=== PATIENT | male | born 1935 | race Caucasian/White ===

== ENCOUNTER 2021-08-26 08:54 | Outpatient (CLI) | payer MEDICARE | END 2021-08-26 08:55 | disposition home or self-care (01) | LOC: LABBT 08:54 | PROVIDERS: ATTEND Internal Medicine Cardiovascular Disease | DX: Z53.9 Procedure and treatment not carried out, unspecified reason (principal) | CPT/HCPCS: 80053; 85027; 85610; 86850; 86900; 86901; U0003; U0005 ==

== ENCOUNTER 2021-08-26 10:15 | Inpatient (IN) | payer MEDICARE ==
[2021-08-26 10:07] LABS: Hemoglobin 16.3 g/dL (13.5-17.5); Mean Corpuscular HGB CONC 33.5 g/dL (32.0-36.0); Mean Corpuscular Hemoglobin 32.1 pg (27.0-33.0); Mean Corpuscular Volume 95.9 fl (81.2-95.1); Platelet Count 197 10x3/uL (150-450); RBC Distribution Width 14.4 % (11.5-14.5); Red Blood Cell (RBC) Count 5.08 10x6/uL (4.32-5.72); White Blood Cell (WBC) Count 7.2 10x3/uL (3.5-10.5)
[2021-08-26 10:21] LABS: INR-International Normal Ratio 0.9; Prothrombin Time 10.5 sec (9.5-12.1)
[2021-08-26 10:32] LABS: ALT (SGPT) 11 U/L (8-55); AST (SGOT) 15 U/L (5-34); Albumin 3.8 g/dL (3.4-4.8); Alkaline Phosphatase 63 U/L (40-110); Anion Gap 12 mmol/L (10-20); BUN (Urea Nitrogen) 12 mg/dL (8.4-25.7); Bilirubin, Total 0.9 mg/dL (0.2-1.2); Calc. Creatinine Clearance 0 mL/min (70-130); Calcium 9.3 mg/dL (7.8-10.44); Carbon Dioxide 27 mmol/L (23-31); Chloride 104 mmol/L (98-107); Globulin 2.9 g/dL (2.4-3.5); Glucose 95 mg/dL (83-110); Protein, Total 6.7 g/dL (5.8-8.1); Sodium 139 mmol/L (136-145)
[2021-08-26 19:05] LABS: SARS-CoV-2 PCR by NAA Not Detected (NotDetected)
[2021-08-28 13:37] VITALS: BMI 24.5
[2021-08-29] MEDS ORDERED: Heparin 10,000 UNITS/ 10 ML VIAL ONE (09:37)
[2021-08-29] MEDS ORDERED: Clindamycin/D5W 900 mg/50 ml Premix Bag ONE (09:53)
[2021-08-29] MEDS ORDERED: CEFAZOLIN 1 GM VIAL ONE (09:53)
[2021-08-29] MEDS ORDERED: Protamine Sulfate 50 MG/5 ML VIAL ONE (11:37)
== END 2021-08-29 16:27 | disposition home or self-care (01) | DRG 229 ==
LOC: SURG A 08-29 07:13 → EDSTATUS 08-29 10:15
PROVIDERS: ADMIT Internal Medicine Cardiovascular Disease; ATTEND Internal Medicine Cardiovascular Disease
PROC: 02H73DZ Insertion of Intraluminal Device into Left Atrium, Percutaneous Approach (ICD-10-PCS; principal; 2021-08-29)
PROC: 02PA3DZ Removal of Intraluminal Device from Heart, Percutaneous Approach (ICD-10-PCS; 2021-08-29)
PROC: B24BZZ4 Ultrasonography of Heart with Aorta, Transesophageal (ICD-10-PCS; 2021-08-29)
PROC: 4A023N7 Measurement of Cardiac Sampling and Pressure, Left Heart, Percutaneous Approach (ICD-10-PCS; 2021-08-29)
PROC: B2151ZZ Fluoroscopy of Left Heart using Low Osmolar Contrast (ICD-10-PCS; 2021-08-29)
DX: I48.21 Permanent atrial fibrillation (principal); Z20.822 Contact with and (suspected) exposure to COVID-19; Z00.6 Encounter for examination for normal comparison and control in clinical research program; I25.10 Atherosclerotic heart disease of native coronary artery without angina pectoris; M19.90 Unspecified osteoarthritis, unspecified site; M10.9 Gout, unspecified; Z96.651 Presence of right artificial knee joint; F17.210 Nicotine dependence, cigarettes, uncomplicated; Z88.0 Allergy status to penicillin; Z79.01 Long term (current) use of anticoagulants; Z79.899 Other long term (current) drug therapy
CPT/HCPCS: 33340; 36430; 80053; 85027; 85347; 85610; 86850; 86900; 86901; 93312; C1759; J0690; J1644; J2720; J3490; U0003; U0005

== ENCOUNTER 2023-09-23 09:48 | Outpatient (CLI) | payer MEDICARE | END 2023-09-23 09:49 | disposition home or self-care (01) | LOC: BICRAD 09:48 | PROVIDERS: ATTEND Family Medicine | DX: M50.90 Cervical disc disorder, unspecified, unspecified cervical region (principal); R13.10 Dysphagia, unspecified; M47.812 Spondylosis without myelopathy or radiculopathy, cervical region; M43.12 Spondylolisthesis, cervical region; M47.26 Other spondylosis with radiculopathy, lumbar region; M16.0 Bilateral primary osteoarthritis of hip; Z98.890 Other specified postprocedural states | CPT/HCPCS: 72052; 72100 ==

== ENCOUNTER 2024-09-07 15:19 | Outpatient (CLI) | payer MEDICARE | END 2024-09-07 15:20 | disposition home or self-care (01) | LOC: BICRAD 15:19 | PROVIDERS: ATTEND Family Medicine | DX: M25.551 Pain in right hip (principal); M16.0 Bilateral primary osteoarthritis of hip; M47.816 Spondylosis without myelopathy or radiculopathy, lumbar region; Z98.890 Other specified postprocedural states | CPT/HCPCS: 72190 ==

== ENCOUNTER 2024-12-14 11:59 | Outpatient (CLI) | payer MEDICARE ==
[2024-12-14 13:52] LABS: #Basophils 0.07 10x3/uL (0.0-0.2); %Eosinophils 4.8 % (0.0-10.0); %Lymphocytes 32.3 % (21.0-51.0); %Monocytes 9.3 % (0.0-10.0); %Neutrophils 52.5 % (42.0-75.0); Hematocrit 45.2 % (42.0-52.0); Hemoglobin 14.7 g/dL (14.0-18.0); Mean Corpuscular HGB CONC 32.5 g/dL (32.0-36.0); Mean Corpuscular Hemoglobin 32.4 pg (27.0-31.0); Mean Corpuscular Volume 99.6 fL (78.0-98.0); Mean Platelet Volume 9.9 fL (7.4-10.4); Platelet Count 208 10x3/uL (130-400); RBC Distribution Width 15.6 % (11.5-14.5); Red Blood Cell (RBC) Count 4.54 mill/uL (4.70-6.10)
[2024-12-14 14:18] LABS: Anion Gap 11 mmol/L (10-20); BUN (Urea Nitrogen) 18 mg/dL (8.4-25.7); Calc. Creatinine Clearance 0 mL/min (70-130); Carbon Dioxide 30 mmol/L (23-31); Chloride 103 mmol/L (98-107); Estimated GFR 86; Glucose 87 mg/dL (83-110); Potassium 4.1 mmol/L (3.5-5.1); Sodium 140 mmol/L (136-145)
[2024-12-14 14:37] LABS: PTT 31.7 sec (22.9-36.1); Prothrombin Time 13.4 sec (12.0-14.7)
== END 2024-12-14 12:00 | disposition home or self-care (01) ==
LOC: LABBT 11:59
PROVIDERS: ATTEND Surgery
DX: Z01.818 Encounter for other preprocedural examination (principal); M48.061 Spinal stenosis, lumbar region without neurogenic claudication; M54.14 Radiculopathy, thoracic region; G95.9 Disease of spinal cord, unspecified
CPT/HCPCS: 80048; 85025; 85610; 85730; 93005; 93010

== ENCOUNTER 2024-12-15 06:10 | Inpatient (IN) | payer MEDICARE ==
[2024-12-15] MEDS ORDERED: Thrombin 5000 UNITS/5 ML VIAL ONE (06:22)
[2024-12-15] MEDS ORDERED: Vancomycin 1 GM VIAL ONE (06:22)
[2024-12-15] MEDS ORDERED: fentaNYL PF 100 MCG/2 ML SYRINGE ONE ×2 (06:50→10:36)
[2024-12-15] MEDS ORDERED: Rocuronium Bromide 10 MG/ML (10ML VIAL) ONE (06:50)
[2024-12-15] MEDS ORDERED: PROPOFOL 20 ML ONE (06:50)
[2024-12-15] MEDS ORDERED: Lidocaine 1% PF 5 ML VIAL ONE (06:50)
[2024-12-15] MEDS ORDERED: KETAMINE 100 MG/ML (5ML VIAL) ONE (06:52)
[2024-12-15] MEDS ORDERED: Lidocaine 1% MPF 2 ML VIAL ONE (06:54)
[2024-12-15] MEDS ORDERED: Clindamycin/D5W 900 mg/50 ml Premix Bag ONE (06:55)
[2024-12-15] MEDS ORDERED: LevoFLOXacin D5W 500 mg (100 mL) BAG ONE (07:22)
[2024-12-15] MEDS ORDERED: Dexmedetomidine 200 MCG/2 ML VIAL ONE (07:35)
[2024-12-15] MEDS ORDERED: PHENYLEPHRINE-NS 100 MCG/ML 10 ML SYRINGE ONE (08:22)
[2024-12-15] MEDS ORDERED: Dexamethasone 20 MG/5 ML VIAL ONE (09:02)
[2024-12-15] MEDS ORDERED: ePHEDrine Sulfate 50 MG/10 ML VIAL ONE (09:21)
[2024-12-15] MEDS ORDERED: Vecuronium 10 MG VIAL ONE (09:53)
[2024-12-15] MEDS ORDERED: Ondansetron PF 4 MG/2 ML Vial ONE (10:20)
[2024-12-15] MEDS ORDERED: HYDROmorphone 2 MG/ML VIAL SLOW IVP PRN (11:13)
[2024-12-15] MEDS ORDERED: Ondansetron HCl/PF 4 MG/2 ML Vial IVP PRN (11:13)
[2024-12-15] MEDS ORDERED: PACU-Morphine 4MG/ML VIAL SLOW IVP PRN (11:13)
[2024-12-15] MEDS ORDERED: Promethazine HCl 25 MG/ML VIAL IM PRN (11:13)
[2024-12-15] MEDS ORDERED: Morphine Sulfate 2 MG/ML SYRINGE SLOW IVP PRN (11:13)
[2024-12-15] MEDS ORDERED: Lidocaine 2% PF 5 ML VIAL ONE (11:18)
[2024-12-15] MEDS ORDERED: SUGAMMADEX SODIUM 200 MG/2 ML VIAL ONE (11:43)
[2024-12-15] MEDS ORDERED: hydrALAZINE 20 MG/ML VIAL ONE (11:49)
[2024-12-15] MEDS ORDERED: Milk Of Magnesia 30 ML UDCUP PO PRN (11:56)
[2024-12-15] MEDS ORDERED: Ondansetron PF 4 MG/2 ML Vial IVP PRN (11:56)
[2024-12-15] MEDS ORDERED: Benzocaine/Menthol 1 LOZ LOZ PO PRN (12:01)
[2024-12-15] MEDS ORDERED: fentaNYL 50 mcg/mL 1 mL Vial ONE ×5 (12:18→15:08)
[2024-12-15] MEDS ORDERED: Albuterol 2.5 MG (3 mL) NEB NEB PRN (12:27)
[2024-12-15 13:02] LABS: CO2 Tension 48.7 mmHg (35.0-45.0); Calcium, Ionized (arterial) 1.17 mmol/L (1.12-1.30); Carboxyhemoglobin (COHb) 1.1 gm% (0.0-3.0); Hematocrit-ABG 44 % (42.0-52.0); Hemoglobin (Hb) 14.8 g/dL (14.0-18.0); O2 Tension (PaO2), arterial 70.7 mmHg (> 60.0); Potassium - ABG Lab 3.88 mmol/L (3.70-5.30); pH, Arterial 7.377 (7.35-7.45)
[2024-12-15 13:03] LABS: ALV-art Gradient 18.155 mmHg (0-20); Puncture Site Arterial Line
[2024-12-15] MEDS ORDERED: HYDROmorphone 0.5 MG/0.5 ML SYRINGE ONE ×3 (13:05→14:10)
[2024-12-15] MEDS: Sodium Chloride 0.9% 1,000 ML IV SCH (16:00)
[2024-12-15] MEDS: Clindamycin/D5W 900 MG in Premix 1 BAG IVPB SCH (16:02)
[2024-12-15] MEDS: Acetaminophen/Codeine 30-300mg Tablet PO PRN (16:52)
[2024-12-15] MEDS: HYDROcodone/Acetaminophen 5/325 mg Tablet PO PRN (18:54)
[2024-12-15] MEDS: dilTIAZem CD 120 MG CAP PO SCH (21:30)
[2024-12-15] MEDS: Dutasteride 0.5 MG CAP PO SCH (21:30)
[2024-12-15] MEDS: Lisinopril 20 MG TAB PO SCH (21:30)
[2024-12-15] MEDS: diphenhydrAMINE 25 MG CAP PO PRN (23:18)
[2024-12-16 04:21] LABS: #Basophils Less than 0.03 10x3/uL (0.0-0.2); #Eosinophils Less than 0.03 10x3/uL (0.0-0.7); %Basophils 0.2 % (0.0-1.0); %Lymphocytes 8.4 % (21.0-51.0); %Monocytes 7.3 % (0.0-10.0); %Neutrophils 83.7 % (42.0-75.0); Hematocrit 42.5 % (42.0-52.0); Mean Corpuscular HGB CONC 32.9 g/dL (32.0-36.0); Mean Corpuscular Hemoglobin 32.6 pg (27.0-31.0); Mean Corpuscular Volume 98.8 fL (78.0-98.0); Platelet Count 211 10x3/uL (130-400); RBC Distribution Width 15.6 % (11.5-14.5)
[2024-12-16 04:26] LABS: Anion Gap 12 mmol/L (10-20); BUN (Urea Nitrogen) 12 mg/dL (8.4-25.7); Calc. Creatinine Clearance 88 mL/min (70-130); Calcium 8.6 mg/dL (7.8-10.44); Carbon Dioxide 25 mmol/L (23-31); Chloride 103 mmol/L (98-107); Estimated GFR 92; Glucose 135 mg/dL (83-110); Potassium 4.3 mmol/L (3.5-5.1); Sodium 136 mmol/L (136-145)
[2024-12-16] MEDS: Metoprolol Tartrate 5 MG (5 mL) VIAL ONE (06:53)
[2024-12-16] MEDS: DILTIAZEM ONE (07:03)
[2024-12-16] MEDS: Hydrochlorothiazide 25 MG TAB PO SCH (07:47)
[2024-12-16] MEDS: dilTIAZem 25 MG/5 ML VIAL SLOW IVP SCH (07:49)
[2024-12-16 10:06] VITALS: BMI 24.7
[2024-12-16] MEDS: Morphine 2 MG/ML VIAL SLOW IVP PRN (12:43)
[2024-12-16] MEDS: Diazepam 5 MG TAB PO PRN (13:02)
[2024-12-16] MEDS: HYDROcodone/Acetaminophen 10/325 mg Tablet PO PRN (14:00)
[2024-12-16] MEDS: Diltiazem HCl/D5W 125 MG in Premix 1 BAG IVPB SCH (16:03)
[2024-12-16] MEDS: tiZANidine HCl 4 MG TAB PO PRN (20:12)
[2024-12-17] MEDS: hydrALAZINE 20 MG/ML VIAL SLOW IVP PRN (09:34)
[2024-12-17] MEDS: dilTIAZem CD 120 MG CAP PO SCH ×2 (12:15→21:03)
[2024-12-18] MEDS: Acetaminophen 325 MG TAB PO PRN (06:37)
[2024-12-18] MEDS: dilTIAZem CD 180 MG CAP PO SCH (08:30)
[2024-12-18] MEDS: Enoxaparin 40 MG (0.4 mL) SYRINGE SC SCH (10:00)
[2024-12-19] MEDS: Pantoprazole 40 MG DR.TAB PO SCH (08:44)
[2024-12-19] MEDS: Dexamethasone 4 mg/ml Vial SLOW IVP SCH (08:44)
[2024-12-19] MEDS ORDERED: Iopamidol 370 76% 100 ML VIAL ONE (12:17)
[2024-12-19] MEDS: Gabapentin 300 MG CAP PO SCH (12:21)
[2024-12-19] MEDS: Dexamethasone 4 MG TAB PO SCH (14:22)
[2024-12-19] MEDS: dilTIAZem CD 120 MG CAP PO SCH (20:27)
[2024-12-19] MEDS ORDERED: Gabapentin 300 MG CAP PO SCH (21:00)
[2024-12-20] MEDS ORDERED: Clindamycin/D5W 900 mg/50 ml Premix Bag ONE (12:27)
[2024-12-20] MEDS ORDERED: PROPOFOL 20 ML ONE (12:31)
[2024-12-20] MEDS ORDERED: Rocuronium Bromide 10 MG/ML (10ML VIAL) ONE (12:31)
[2024-12-20] MEDS ORDERED: Lidocaine 1% PF 5 ML VIAL ONE (12:31)
[2024-12-20] MEDS ORDERED: Ondansetron PF 4 MG/2 ML Vial ONE (12:31)
[2024-12-20] MEDS ORDERED: LevoFLOXacin D5W 500 mg (100 mL) BAG ONE (12:32)
[2024-12-20] MEDS ORDERED: SUGAMMADEX SODIUM 200 MG/2 ML VIAL ONE (14:10)
[2024-12-20] MEDS ORDERED: PHENYLEPHRINE-NS 100 MCG/ML 10 ML SYRINGE ONE (14:10)
[2024-12-20] MEDS ORDERED: fentaNYL 50 mcg/mL 1 mL Vial ONE (15:44)
[2024-12-20] MEDS: Sodium Chloride 0.9% 1,000 ML IV SCH (17:15)
[2024-12-20] MEDS: Clindamycin/D5W 900 MG in Premix 1 BAG IVPB SCH (20:53)
[2024-12-21 04:26] LABS: #Basophils Less than 0.03 10x3/uL (0.0-0.2); #Eosinophils Less than 0.03 10x3/uL (0.0-0.7); %Basophils 0.1 % (0.0-1.0); %Monocytes 4.8 % (0.0-10.0); %Neutrophils 89.6 % (42.0-75.0); Hematocrit 43.2 % (42.0-52.0); Hemoglobin 14.4 g/dL (14.0-18.0); Mean Corpuscular HGB CONC 33.3 g/dL (32.0-36.0); Mean Corpuscular Hemoglobin 31.9 pg (27.0-31.0); Mean Corpuscular Volume 95.8 fL (78.0-98.0); Mean Platelet Volume 9.7 fL (7.4-10.4); Platelet Count 252 10x3/uL (130-400); RBC Distribution Width 14.6 % (11.5-14.5); Red Blood Cell (RBC) Count 4.51 mill/uL (4.70-6.10)
[2024-12-21 04:42] LABS: Anion Gap 14 mmol/L (10-20); BUN (Urea Nitrogen) 30 mg/dL (8.4-25.7); Calc. Creatinine Clearance 78 mL/min (70-130); Calcium 8.9 mg/dL (7.8-10.44); Carbon Dioxide 29 mmol/L (23-31); Chloride 98 mmol/L (98-107); Estimated GFR 91; Glucose 146 mg/dL (83-110); Potassium 3.7 mmol/L (3.5-5.1); Sodium 137 mmol/L (136-145)
[2024-12-21] MEDS ORDERED: Thrombin 5000 UNITS/5 ML VIAL ONE (06:28)
[2024-12-21] MEDS ORDERED: Vancomycin 1 GM VIAL ONE (06:28)
[2024-12-21] MEDS: LevoFLOXacin 500 mg/D5W 500 MG in Premix 1 BAG IVPB SCH (09:32)
[2024-12-21] MEDS: Dexamethasone 1 MG TAB PO SCH (13:33)
[2024-12-22 12:06] VITALS: TEMP 97.7
[2024-12-22 12:13] VITALS: BP 162/90
[2024-12-22] MEDS: Dexamethasone 1 MG TAB PO SCH (15:38)
[2024-12-23] MEDS ORDERED: Dexamethasone 1 MG TAB PO SCH ×2 (14:00)
[2024-12-25] MEDS ORDERED: Dexamethasone 1 MG TAB PO SCH (14:00)
== END 2024-12-22 17:07 | DRG 29 ==
LOC: SDC 06:10 → INTOOBSV 12:04 → CCU 12:04 → OBSVTOIN 18:38 → 2NO 12-17 19:02
PROVIDERS: ADMIT Surgery; ATTEND Surgery
PROC: 00NX0ZZ Release Thoracic Spinal Cord, Open Approach (ICD-10-PCS; principal; 2024-12-15)
PROC: 00NY0ZZ Release Lumbar Spinal Cord, Open Approach (ICD-10-PCS; 2024-12-15)
PROC: 01N80ZZ Release Thoracic Nerve, Open Approach (ICD-10-PCS; 2024-12-15)
PROC: 01NB0ZZ Release Lumbar Nerve, Open Approach (ICD-10-PCS; 2024-12-15)
PROC: 0SC00ZZ Extirpation of Matter from Lumbar Vertebral Joint, Open Approach (ICD-10-PCS; 2024-12-20)
DX: G95.19 Other vascular myelopathies (principal); I48.19 Other persistent atrial fibrillation; M48.061 Spinal stenosis, lumbar region without neurogenic claudication; M54.15 Radiculopathy, thoracolumbar region; E78.5 Hyperlipidemia, unspecified; I25.5 Ischemic cardiomyopathy; I10 Essential (primary) hypertension; N40.0 Benign prostatic hyperplasia without lower urinary tract symptoms; M62.81 Muscle weakness (generalized); Z90.49 Acquired absence of other specified parts of digestive tract; Z88.0 Allergy status to penicillin; Z88.5 Allergy status to narcotic agent; Z88.8 Allergy status to other drugs, medicaments and biological substances
CPT/HCPCS: 36415; 70496; 70498; 70551; 72146; 72148; 80048; 82805; 85025; 85610; 85730; 93005; 93306; 93970; A4314; C1889; J0360; J1100; J1171; J1650; J1956; J2272; J2405; J2704; J3010; J3370; J3490; J7030; J8540; Q9967